=== PATIENT | male | born 1945 | race Caucasian/White ===

== ENCOUNTER 2020-02-05 07:42 | Emergency (ER) | payer MEDICARE, OTHER ==
[2020-02-05 07:53] VITALS: PULSE 65
[2020-02-05 08:30] LABS: Basophils % (A) 0 %; Eosinophils # (A) 0.2 k/uL (0-0.7); Eosinophils % (A) 2 %; HCT 44.2 % (39.0-53.0); HGB 14.3 gm/dL (13.0-17.5); Lymphocytes # (A) 1.3 k/uL (1.0-4.8); Lymphocytes % (A) 13 %; MCH 30.4 pg (25.0-35.0); MCHC 32.5 g/dL (31.0-37.0); MCV 93.6 fL (80.0-100.0); Mean Platelet Volume 8.4; Monocytes # (A) 0.5 k/uL (0-1.0); Monocytes % (A) 5 %; Neutrophils # (A) 7.7 k/uL (1.3-7.7); Neutrophils % (A) 78 %; Platelet Count 236 k/uL (150-450); RBC 4.72 m/uL (4.30-5.90); RDW 12.2 % (11.5-15.5); WBC 9.8 k/uL (3.8-10.6)
--- NOTE | 2020-02-05 08:31 | XR ---
EXAMINATION TYPE: XR chest 1V portable DATE OF EXAM: 02/05/2020 HISTORY: Shortness of breath. COMPARISON: None. TECHNIQUE: Single view of the chest is submitted. FINDINGS: Demonstrated are scattered senescent parenchymal change. There is no evidence for focal infiltrate. The heart is stable. Hilar and mediastinal structures are within normal limits. Degenerative changes are seen of the dorsal spine. IMPRESSION: 1. Chronic changes without evidence for acute pulmonary disease.
--- NOTE | 2020-02-05 08:35 | ED ---
General Adult HPI - General Chief complaint: Upper Respiratory Infection Stated complaint: cough/sneezing & fall Time Seen by Provider: 02/05/20 07:54 Source: patient Mode of arrival: wheelchair Limitations: no limitations - History of Present Illness Initial comments: Dictation was produced using [employer]on[employer] dictation software. please excuse any gramma tical, word or spelling errors. This patient was cared for during a federal and state declared state of emergency secondary to Covid 19 Chief Complaint: 74-year-old male past medical history diabetes and hypertension presents with concern of Covid 19 History of Present Illness: 74-year-old male who presents today with concern of coronavirus infection. He's been having sneezing coughing for the last 2 weeks. States that he was given some medications which improved his symptoms. Patient denies any fever, chills or night sweats. He was urged by his to come in to be tested for coronavirus. Patient reports that he doesn't feel very ill and only came because his made him come. Patient denies any shortness of breath. The ROS documented in this emergency department record has been reviewed and confirmed by me. Those systems with pertinent positive or negative responses have been documented in the HPI. All other systems are other negative and/or noncontributory. PHYSICAL EXAM: General Impression: Alert and oriented x3, not in acute distress HEENT: Normocephalic atraumatic, extra-ocular movements intact, pupils equal and reactive to light bilaterally, mucous membranes moist. Cardiovascular: Heart regular rate and rhythm Chest: Able to complete full sentences, no retractions, no tachypnea Abdomen: Bowel sounds present, abdomen soft, non-tender, non-distended, no organomegaly Musculoskeletal: Pulses present and equal in all extremities, no peripheral e dom Motor: no focal deficits noted Neurological: CN II-XII grossly intact, no focal motor or sensory deficits noted Skin: Intact with no visualized rashes Psych: Normal affect and mood ED course: 74-year-old male presents to the emergency department for coronavirus testing. Vital signs upon arrival are within acceptable limits. Patient well- appearing at bedside. Not hypoxic and not showing any signs of respiratory distress. Patient was notified that we are not testing stable patient's at this time Laboratory evaluation obtained showing no acute processes. CRP is negative. X- rays nonacute. Although patient appears stable there is a small chance that she has coronavirus however he appears stable at this time. He is told that his chances of having it is very unlikely although possible. Patient's symptoms likely secondary to allergens. He is advised follow-up with primary care reece maria. Patient told to cardiac for 14 days. He is also given covert 19 resources. Return parameters discussed. Patient will be discharged. EKG interpretation: Ventricular rate 64, normal sinus rhythm,. 142, QRS 82, QTC 425. No TN prolongation, no QTC prolongation, no ST or T-wave changes noted. Overall, this EKG is unremarkable - Related Data Allergies Allergy/AdvReac Type Severity Reaction Status Date / Time No Known Allergies Allergy Verified 02/05/20 07:53 Review of Systems ROS Statement: Those systems with pertinent positive or pertinent negative responses have been documented in the HPI. ROS Other: All systems not noted in ROS Statement are negative. Past Medical History Past Medical History: Diabetes Mellitus, Hypertension History of Any Multi-Drug Resistant Organisms: None Reported Past Surgical History: No Surgical Hx Reported Smoking Status: Current every day smoker Past Alcohol Use History: None Reported Past Drug Use History: None Reported General Exam Limitations: no limitations Course Vital Signs 02/05/20 02/05/20 02/05/20 07:46 08:18 08:29 Temperature 98.6 F Pulse Rate 65 Respiratory 18 16 16 Rate Blood Pressure 180/85 O2 Sat by Pulse 97 Oximetry 02/05/20 09:14 Temperature 98.8 F Pulse Rate 65 Respiratory 18 Rate Blood Pressure 176/97 O2 Sat by Pulse 97 Oximetry Medical Decision Making - Lab Data Result diagrams: 02/05/20 08:20 02/05/20 08:20 Lab Results 02/05/20 02/05/20 Range/Units 08:20 08:20 WBC 9.8 (3.8-10.6) k/uL RBC 4.72 (4.30-5.90) m/uL Hgb 14.3 (13.0-17.5) gm/dL Hct 44.2 (39.0-53.0) % MCV 93.6 (80.0-100.0) fL MCH 30.4 (25.0-35.0) pg MCHC 32.5 (31.0-37.0) g/dL RDW 12.2 (11.5-15.5) % Plt Count 236 (150-450) k/uL Neutrophils % 78 % Lymphocytes % 13 % Monocytes % 5 % Eosinophils % 2 % Basophils % 0 % Neutrophils # 7.7 (1.3-7.7) k/uL Lymphocytes # 1.3 (1.0-4.8) k/uL Monocytes # 0.5 (0-1.0) k/uL Eosinophils # 0.2 (0-0.7) k/uL Basophils # 0.0 (0-0.2) k/uL Sodium 139 (137-145) mmol/L Potassium 4.5 (3.5-5.1) mmol/L Chloride 111 H (98-107) mmol/L Carbon Dioxide 22 (22-30) mmol/L Anion Gap 6 mmol/L BUN 16 (9-20) mg/dL Creatinine 0.70 (0.66-1.25) mg/dL Est GFR (CKD-EPI)AfAm >90 (>60 ml/min/1.73 sqM) Est GFR (CKD-EPI)NonAf >90 (>60 ml/min/1.73 sqM) Glucose 112 H (74-99) mg/dL Calcium 8.9 (8.4-10.2) mg/dL C-Reactive Protein <5.0 (<10.0) mg/L Disposition Clinical Impression: Sneezing Disposition: HOME SELF-CARE Condition: Good Instructions (If sedation given, give patient instructions): Upper Respiratory Infection (ED) Additional Instructions: Today you were evaluated for symptoms consistent with upper respiratory infection. There is concern that perhaps your symptomatology may represent Covid 19. Your are stable for discharge, however it is instructed to to seek immediate medical attention especially if you develop worsening symptoms especially respiratory distress. In the meantime please remain in quarantine for 14 days. For any other questions please contact Ricci for here in emergency department or [facility] at [phone] Is patient prescribed a controlled substance at d/c from ED?: No Referrals: Fariba Astorga MD [Primary Care Provider] - 1-2 days Time of Disposition: 09:21
[2020-02-05 08:39] LABS: African American GFR (CKD) >90 (>60 ml/min/1.73 sqM); Anion Gap 6 mmol/L; Blood Urea Nitrogen 16 mg/dL (9-20); Calcium 8.9 mg/dL (8.4-10.2); Carbon Dioxide 22 mmol/L (22-30); Chloride 111 mmol/L (98-107); Glucose 112 mg/dL (74-99); Non-African American GFR(CKD) >90 (>60 ml/min/1.73 sqM); Potassium 4.5 mmol/L (3.5-5.1); Sodium 139 mmol/L (137-145)
[2020-02-05 09:11] LABS: C Reactive Protein <5.0 mg/L (<10.0)
[2020-02-05 09:18] VITALS: BP 176/97; RESP 18; TEMP 98.8
== END 2020-02-05 09:43 | disposition home or self-care (01) ==
LOC: EC 07:42
DX: R06.7 Sneezing (principal); R05 Cough; E11.9 Type 2 diabetes mellitus without complications; I10 Essential (primary) hypertension; F17.200 Nicotine dependence, unspecified, uncomplicated
CPT/HCPCS: 36415; 71045; 80048; 85025; 86140; 93005; 99284

== ENCOUNTER 2020-08-23 13:50 | Observation (INO) | payer MEDICARE, OTHER ==
--- NOTE | 2020-08-23 14:13 | ED ---
General Adult HPI - General Chief complaint: Chest Pain Stated complaint: chest pain Time Seen by Provider: 08/23/20 14:00 Source: patient, EMS, RN notes reviewed, old records reviewed Mode of arrival: EMS Limitations: no limitations - History of Present Illness Initial comments: 75-year-old male presenting for evaluation of chest pain. Pain is in his right shoulder, does travel from the shoulder into the right-sided chest and to central substernal region. Has been ongoing for the past 2 days. Patient does report that he was moving some heavy boxes and felt that this may have initiated the pain. He has a history of CAD with previous stent. He denies nausea vomiting. Denies diaphoresis. Denies any left-sided symptoms. - Related Data Allergies Allergy/AdvReac Type Severity Reaction Status Date / Time No Known Allergies Allergy Verified 06/23/20 17:55 Review of Systems ROS Statement: Those systems with pertinent positive or pertinent negative responses have been documented in the HPI. ROS Other: All systems not noted in ROS Statement are negative. Past Medical History Past Medical History: Coronary Artery Disease (CAD), Diabetes Mellitus, Hypertension History of Any Multi-Drug Resistant Organisms: None Reported Past Surgical History: No Surgical Hx Reported Additional Past Surgical History / Comment(s): 1 sent placed Smoking Status: Current every day smoker Past Alcohol Use History: Daily Past Drug Use History: None Reported General Exam Limitations: no limitations General appearance: alert, in no apparent distress Head exam: Present: atraumatic, normocephalic Eye exam: Present: normal appearance ENT exam: Present: normal exam Neck exam: Present: normal inspection. Absent: tenderness, meningismus Respiratory exam: Present: normal lung sounds bilaterally. Absent: respiratory distress, wheezes Cardiovascular Exam: Present: regular rate, normal rhythm GI/Abdominal exam: Present: soft. Absent: distended, tenderness, guarding Extremities exam: Present: other (pain in the left shoulder with range of motion) Neurological exam: Present: alert, oriented X3 Psychiatric exam: Present: normal affect, normal mood Skin exam: Present: warm, dry, intact Course Vital Signs 08/23/20 08/23/20 08/23/20 13:53 14:02 15:05 Temperature 98.5 F 98.2 F Pulse Rate 79 74 Pulse Rate [ 75 [employer] ] Respiratory 16 16 Rate Blood Pressure 152/87 125/87 O2 Sat by Pulse 96 94 L Oximetry - Reevaluation(s) Reevaluation #1: 08/23/20 15:16 patient given aspirin, nitroglycerin, and fentanyl by EMS. EKG Findings - EKG Comments: EKG Findings:: EKG: Normal sinus rhythm, rate of 79, SD interval 132, QRS duration 80, QTC 442, no ST segment elevation. Medical Decision Making - Medical Decision Making 5-year-old male with right upper chest pain, shoulder pain. Pain is atypical however does have a component of substernal chest pain associated with it His EKG shows sinus rhythm without ST segment elevation. Chest x-rays negative for acute cardiopulmonary disease. Patient has a normal CBC normal CMP, negative initial troponin. I suspect this patient's pain is musculoskeletal he will be placed in observation for serial cardiac enzymes, telemetry, and cardiology consultation given his risk factors. - Lab Data Result diagrams: 08/23/20 14:06 08/23/20 14:06 Lab Results 08/23/20 08/23/20 08/23/20 Range/Units 14:01 14:06 14:06 WBC 12.2 H (3.8-10.6) k/uL RBC 4.59 (4.30-5.90) m/uL Hgb 14.8 (13.0-17.5) gm/dL Hct 44.8 (39.0-53.0) % MCV 97.8 (80.0-100.0) fL MCH 32.2 (25.0-35.0) pg MCHC 32.9 (31.0-37.0) g/dL RDW 12.4 (11.5-15.5) % Plt Count 270 (150-450) k/uL Neutrophils % 83 % Lymphocytes % 9 % Monocytes % 6 % Eosinophils % 1 % Basophils % 0 % Neutrophils # 10.1 H (1.3-7.7) k/uL Lymphocytes # 1.1 (1.0-4.8) k/uL Monocytes # 0.8 (0-1.0) k/uL Eosinophils # 0.1 (0-0.7) k/uL Basophils # 0.0 (0-0.2) k/uL PT 9.6 (9.0-12.0) sec INR 0.9 (<1.2) APTT 23.3 (22.0-30.0) sec Sodium (137-145) mmol/L Potassium (3.5-5.1) mmol/L Chloride (98-107) mmol/L Carbon Dioxide (22-30) mmol/L Anion Gap mmol/L BUN (9-20) mg/dL Creatinine (0.66-1.25) mg/dL Est GFR (CKD-EPI)AfAm (>60 ml/min/1.73 sqM) Est GFR (CKD-EPI)NonAf (>60 ml/min/1.73 sqM) Glucose (74-99) mg/dL Calcium (8.4-10.2) mg/dL Magnesium (1.6-2.3) mg/dL Total Bilirubin (0.2-1.3) mg/dL AST (17-59) U/L ALT (4-49) U/L Alkaline Phosphatase (38-126) U/L Troponin I (0.000-0.034) ng/mL NT-Pro-B Natriuret Pep 237 pg/mL Total Protein (6.3-8.2) g/dL Albumin (3.5-5.0) g/dL Lipase (23-300) U/L 08/23/20 08/23/20 Range/Units 14:06 14:06 WBC (3.8-10.6) k/uL RBC (4.30-5.90) m/uL Hgb (13.0-17.5) gm/dL Hct (39.0-53.0) % MCV (80.0-100.0) fL MCH (25.0-35.0) pg MCHC (31.0-37.0) g/dL RDW (11.5-15.5) % Plt Count (150-450) k/uL Neutrophils % % Lymphocytes % % Monocytes % % Eosinophils % % Basophils % % Neutrophils # (1.3-7.7) k/uL Lymphocytes # (1.0-4.8) k/uL Monocytes # (0-1.0) k/uL Eosinophils # (0-0.7) k/uL Basophils # (0-0.2) k/uL PT (9.0-12.0) sec INR (<1.2) APTT (22.0-30.0) sec Sodium 134 L (137-145) mmol/L Potassium 4.5 (3.5-5.1) mmol/L Chloride 106 (98-107) mmol/L Carbon Dioxide 25 (22-30) mmol/L Anion Gap 3 mmol/L BUN 17 (9-20) mg/dL Creatinine 0.84 (0.66-1.25) mg/dL Est GFR (CKD-EPI)AfAm >90 (>60 ml/min/1.73 sqM) Est GFR (CKD-EPI)NonAf 86 (>60 ml/min/1.73 sqM) Glucose 173 H (74-99) mg/dL Calcium 9.0 (8.4-10.2) mg/dL Magnesium 1.9 (1.6-2.3) mg/dL Total Bilirubin 0.8 (0.2-1.3) mg/dL AST 36 (17-59) U/L ALT 17 (4-49) U/L Alkaline Phosphatase 83 (38-126) U/L Troponin I <0.012 (0.000-0.034) ng/mL NT-Pro-B Natriuret Pep pg/mL Total Protein 5.9 L (6.3-8.2) g/dL Albumin 3.5 (3.5-5.0) g/dL Lipase 37 (23-300) U/L Disposition Clinical Impression: Chest pain Disposition: ADMITTED IP TO THIS HOSP Condition: Stable Is patient prescribed a controlled substance at d/c from ED?: No Referrals: Wes Pollock DO [Primary Care Provider] - 1-2 days Decision to Admit Reason: Admit from EC Decision Date: 08/23/20 Decision Time: 15:19
[2020-08-23 14:14] LABS: Basophils % (A) 0 %; Eosinophils # (A) 0.1 k/uL (0-0.7); Eosinophils % (A) 1 %; HCT 44.8 % (39.0-53.0); HGB 14.8 gm/dL (13.0-17.5); Lymphocytes # (A) 1.1 k/uL (1.0-4.8); Lymphocytes % (A) 9 %; MCH 32.2 pg (25.0-35.0); MCHC 32.9 g/dL (31.0-37.0); MCV 97.8 fL (80.0-100.0); Mean Platelet Volume 8.1; Monocytes # (A) 0.8 k/uL (0-1.0); Monocytes % (A) 6 %; Neutrophils # (A) 10.1 k/uL (1.3-7.7); Neutrophils % (A) 83 %; Platelet Count 270 k/uL (150-450); RBC 4.59 m/uL (4.30-5.90); RDW 12.4 % (11.5-15.5); WBC 12.2 k/uL (3.8-10.6)
[2020-08-23 14:24] LABS: ALT 17 U/L (4-49); AST 36 U/L (17-59); African American GFR (CKD) >90 (>60 ml/min/1.73 sqM); Albumin 3.5 g/dL (3.5-5.0); Alkaline Phosphatase 83 U/L (38-126); Anion Gap 3 mmol/L; Blood Urea Nitrogen 17 mg/dL (9-20); Carbon Dioxide 25 mmol/L (22-30); Chloride 106 mmol/L (98-107); Glucose 173 mg/dL (74-99); Lipase 37 U/L (23-300); Magnesium 1.9 mg/dL (1.6-2.3); Non-African American GFR(CKD) 86 (>60 ml/min/1.73 sqM); Potassium 4.5 mmol/L (3.5-5.1); Sodium 134 mmol/L (137-145); Total Bilirubin 0.8 mg/dL (0.2-1.3); Total Protein 5.9 g/dL (6.3-8.2)
--- NOTE | 2020-08-23 14:31 | XR ---
EXAMINATION TYPE: XR chest 2V DATE OF EXAM: 08/23/2020 COMPARISON: Chest x-ray February 05, 2020 HISTORY: Chest pain. TECHNIQUE: Frontal and lateral views of the chest are obtained. FINDINGS: There is chronic parenchymal changes bilaterally without suspicious focal air space opacit y, pleural effusion, or pneumothorax seen. The cardiac silhouette size is within normal limits. Mult ilevel spurring in the spine. Overlying EKG leads are present. IMPRESSION: Chronic changes without acute pulmonary process.
--- NOTE | 2020-08-23 14:32 | XR ---
EXAMINATION TYPE: XR shoulder complete RT DATE OF EXAM: 08/23/2020 CLINICAL HISTORY: Chest pain into right shoulder. TECHNIQUE: Three views of the right shoulder are obtained. COMPARISON: None. FINDINGS: There is no acute fracture/dislocation evident in the right shoulder. Moderate spurring an d joint space loss acromioclavicular joint. Distal acromion morphology unremarkable. Glenohumeral waldo nt shows [id number] narrowing. The visualized ribs are intact and unremarkable. IMPRESSION: As above.
[2020-08-23 14:35] LABS: INR 0.9 (<1.2); Partial Thromboplastin Time 23.3 sec (22.0-30.0); Prothrombin Time 9.6 sec (9.0-12.0)
[2020-08-23] MEDS ORDERED: NALOXONE 0.4 MG/ML 1 ML VIAL IV PRN (15:17)
[2020-08-23] MEDS ORDERED: ACETAMINOPHEN TAB 325 MG TAB PO PRN (15:17)
[2020-08-23] MEDS ORDERED: SODIUM CHLORIDE 0.9% 1,000 ML IV SCH (15:30)
[2020-08-23] MEDS: MORPHINE SULFATE 4 MG/ML SYRINGE IV PRN ×2 (17:00→22:26)
[2020-08-23] MEDS ORDERED: SYMBICORT 80-4.5 MCG INHALER INHALATION PRN (17:33)
[2020-08-23 20:41] LABS: Glucose,Whole Blood 105 mg/dL (75-99)
[2020-08-23] MEDS: INSULIN ASPART (NovoLOG) 100 UNIT/ML VIAL SQ SCH (21:47)
--- NOTE | 2020-08-23 22:32 | P.HPIM ---
History of Present Illness H&P Date: 08/23/20 Chief Complaint: Chest Pain Patient is a 75-year-old male with a known history of coronary artery disease status post stent placement x1, ongoing nicotine addiction, diabetes type 2, hypertension and daily alcohol use came to ER with complaints of chest pain. Chest pain is mainly right upper chest and patient states that starts with this shoulder pain and radiating to the midsternal region. Patient states that pain gets worse when he sleeps on the side. Pain has been going on for the past 2 days. No associated nausea vomiting or diaphoresis. No headache or dizziness or lightheadedness. No palpitations no leg swelling. Denied any recent illnesses. No recent travel. Chest x-ray showed chronic changes without acute pulmonary process. Shoulder x-ray showed there is no acute fracture or dislocation Currently right shoulder. Moderate spurring and joint space loss of Glenohumeral joint shows mild to moderate narrowing. Laboratory data showed WBC 12.2, hemoglobin 14.8, platelets 270 Sodium 134, potassium 4.5, troponin x3 - 11 years within normal meds. proBNP 237 Lipase 37 Review of Systems Constitutional: Patient denies any fever or chills . No generalized weakness or weight loss. Abdomen: Patient denied nausea vomiting and diarrhea and abdominal pain. Cardiovascular: Patient denies any chest pain or short of breath no palpitations. Respiratory: patient denied any cough or sputum production. No shortness of breath Neurologic: Patient denied any numbness or tingling headache. Musculoskeletal: Rt Shoulder pain Skin: Negative Psychiatric: Negative Endocrine: No heat or cold intolerance. No recent weight gain. Genitourinary: No dysuria or hematuria. All other 14 point ROS negative except the above Past Medical History Past Medical History: Coronary Artery Disease (CAD), Diabetes Mellitus, Hyperlipidemia, Hypertension Additional Past Medical History / Comment(s): 1 stent History of Any Multi-Drug Resistant Organisms: None Reported Past Surgical History: No Surgical Hx Reported Additional Past Surgical History / Comment(s): 1 sent placed Past Anesthesia/Blood Transfusion Reactions: No Reported Reaction Past Psychological History: No Psychological Hx Reported Smoking Status: Current every day smoker Past Alcohol Use History: Daily Past Drug Use History: None Reported Medications and Allergies Home Medications Medication Instructions Recorded Confirmed Type Aspirin EC [Ecotrin Low Dose] 81 mg PO QAM 08/23/20 08/23/20 History Atorvastatin Calcium [Lipitor] 20 mg PO QAM 08/23/20 08/23/20 History Fluticasone Nasal [place] [Flonase 1 spray EA NOSTRIL DAILY 08/23/20 08/23/20 History Nasal [place]] Fluticasone/Salmeterol [Advair 1 puff INHALATION RT-DAILY PRN 08/23/20 08/23/20 History 250-50 Diskus] Losartan Potassium [Cozaar] 50 mg PO DAILY 08/23/20 08/23/20 History Venlafaxine HCl [Effexor] 75 mg PO DAILY 08/23/20 08/23/20 History Vitamin B-12 100mcg 100 mcg PO QAM 08/23/20 08/23/20 History methocarbamoL [Robaxin] 500 mg PO DAILY 08/23/20 08/23/20 History Allergies Allergy/AdvReac Type Severity Reaction Status Date / Time No Known Allergies Allergy Verified 08/23/20 15:39 Physical Exam Vitals: Vital Signs Temp Pulse Pulse Pulse Resp BP BP 08/23/20 20:33 70 18 08/23/20 20:30 98.8 F 70 18 150/75 08/23/20 16:30 71 18 08/23/20 16:10 99.1 F 71 18 154/84 08/23/20 15:05 98.2 F 74 16 125/87 08/23/20 14:02 75 08/23/20 13:53 98.5 F 79 16 152/87 Pulse Ox 08/23/20 20:33 08/23/20 20:30 93 L 08/23/20 16:30 08/23/20 16:10 96 08/23/20 15:05 94 L 08/23/20 14:02 08/23/20 13:53 96 Intake and Output 08/23/20 08/23/20 08/23/20 06:59 14:59 22:59 Other: Voiding Method Toilet Weight 88.904 kg 88.904 kg PHYSICAL EXAMINATION: Patient is lying in the bed comfortably, no acute distress, awake alert and oriented.. HEENT: Normocephalic. Neck is supple. Pupils reactive. Nostrils clear. Oral cavity is moist. Ears reveal no drainage. Neck reveals no JVD, carotid bruits, or thyromegaly. CHEST EXAMINATION: Trachea is central. Symmetrical expansion. Lung rachel clear to auscultation and percussion. CARDIAC: Normal S1, S2 with no gallops. No murmurs ABDOMEN: Soft. Bowel sounds normal. No organomegaly. No abdominal bruits. Extremities: reveal no edema. No clubbing or cyanosis Neurologically awake, alert, oriented x3 with well-coordinated movements. No focal deficits noted Skin: No rash or skin lesions. Psychiatric: Coperative. Nonsuicidal Musculoskeletal: No joint swelling or deformity. Patient does have pain with adduction of right shoulder. Results CBC & Chem 7: 08/23/20 14:06 08/23/20 14:06 Labs: Abnormal Lab Results - Last 24 Hours (Table) 08/23/20 08/23/20 08/23/20 Range/Units 14:06 14:06 20:39 WBC 12.2 H (3.8-10.6) k/uL Neutrophils # 10.1 H (1.3-7.7) k/uL Sodium 134 L (137-145) mmol/L Glucose 173 H (74-99) mg/dL POC Glucose (mg/dL) 105 H (75-99) mg/dL Total Protein 5.9 L (6.3-8.2) g/dL Thrombosis Risk Factor Assmnt - DVT/VTE Prophylaxis DVT/VTE Prophylaxis: Pharmacologic Prophylaxis ordered - Choose All That Apply Any of the Below Risk Factors Present?: No Each Risk Factor Represents 3 Points: Age 75 years or older Thrombosis Risk Factor Assessment Total Risk Factor Score: 3 Thrombosis Risk Factor Assessment Level: Moderate Risk Assessment and Plan Assessment: Atypical chest pain mainlly right shoulder pain musculoskeletal in origin. Ruled out ACS. Right acromioclavicular osteoarthritis Coronary artery disease history of stent placement x1 Diabetes type 2 [id number] Hypertension Ongoing nicotine addiction Daily alcohol use DVT prophylaxis Plan: Patient will be continued on telemetry monitoring. Serial EKG and troponins. Continue with pain management of the right shoulder and follow-up closely. Further recommendations based on the clinical course. Smoking cessation has been counseled extensively.
[2020-08-23] MEDS: HEPARIN SODIUM,PORCINE 5,000 UNIT/ML 1 ML VIAL SQ SCH (23:46)
[2020-08-24 06:02] LABS: Basophils # (A) 0.1 k/uL (0-0.2); Basophils % (A) 1 %; Eosinophils # (A) 0.1 k/uL (0-0.7); Eosinophils % (A) 1 %; HCT 46.9 % (39.0-53.0); HGB 14.9 gm/dL (13.0-17.5); Lymphocytes # (A) 1.8 k/uL (1.0-4.8); Lymphocytes % (A) 20 %; MCH 31.5 pg (25.0-35.0); MCHC 31.9 g/dL (31.0-37.0); MCV 98.7 fL (80.0-100.0); Monocytes # (A) 0.6 k/uL (0-1.0); Monocytes % (A) 7 %; Neutrophils # (A) 6.2 k/uL (1.3-7.7); Neutrophils % (A) 69 %; Platelet Count 244 k/uL (150-450); RBC 4.75 m/uL (4.30-5.90); RDW 12.5 % (11.5-15.5)
[2020-08-24 06:35] LABS: Glucose,Whole Blood 119 mg/dL (75-99)
[2020-08-24] MEDS: INSULIN ASPART (NovoLOG) 100 UNIT/ML VIAL SQ SCH ×2 (06:37→13:25)
[2020-08-24 07:08] LABS: African American GFR (CKD) >90 (>60 ml/min/1.73 sqM); Anion Gap 3 mmol/L; Blood Urea Nitrogen 14 mg/dL (9-20); Calcium 8.9 mg/dL (8.4-10.2); Carbon Dioxide 26 mmol/L (22-30); Chloride 106 mmol/L (98-107); Glucose 120 mg/dL (74-99); Non-African American GFR(CKD) 85 (>60 ml/min/1.73 sqM); Potassium 4.4 mmol/L (3.5-5.1); Sodium 135 mmol/L (137-145)
[2020-08-24] MEDS ORDERED: VITAMIN B12 100 MCG PO SCH (09:00)
[2020-08-24] MEDS ORDERED: FLUTICASONE 50MCG/SPRAY NASAL 16GM EA NOSTRIL SCH (09:00)
[2020-08-24] MEDS ORDERED: ATORVASTATIN 20 MG TAB PO SCH (09:00)
[2020-08-24] MEDS ORDERED: methocarbamoL 500 MG TAB PO SCH (09:00)
[2020-08-24] MEDS ORDERED: THIAMINE 100 MG TAB PO SCH (09:00)
[2020-08-24] MEDS ORDERED: ASPIRIN 81 MG PO SCH (09:00)
[2020-08-24] MEDS ORDERED: VENLAFAXINE HCL 75 MG TAB PO SCH (09:00)
[2020-08-24] MEDS ORDERED: LOSARTAN 50 MG TAB PO SCH (09:00)
[2020-08-24] MEDS: HEPARIN SODIUM,PORCINE 5,000 UNIT/ML 1 ML VIAL SQ SCH (09:04)
[2020-08-24] MEDS ORDERED: KETOROLAC 15 MG/ML 1 ML VIAL IVP STA (11:01)
--- NOTE | 2020-08-24 12:57 | P.CRDCN ---
History of Present Illness Consult date: 08/24/20 Consult reason: chest pain Chief complaint: chest pain History of present illness: History of present illness: This is a 75-year-old male with past medical history of COPD, hypertension, chronic neck and back pain. 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 He states he had a normal treadmill test many years ago. He has never had a cardiac catheterization. Patient gives history that he has been lifting a lot of boxes as he is in the process of moving. He complains of chest pain to the upper mid and left chest that has been going on for a couple days. It comes and goes and with exertion and seems to get worse. He stops and relaxes and it gets better. He denies having any lightheadedness or dizziness. No palpitations. He also complains of right shoulder pain. Patient came into [facility] emergency center for evaluation. Initial blood pressure 152/87. Troponins are negative on 3 draws. ProBNP 237. Initial white count of 12.2, sodium 134, potassium 4.5, creatinine 0.84. Shoulder x-ray showed no acute fracture or dislocation. Chest x-ray reveals chronic changes w ithout acute pulmonary process. The patient has chest wall tenderness. Review Of Systems: Constitutional: No fever, no chills. No weakness, fatigue or lethargy. EENT: No headache. No dizziness. Lungs: No shortness of breath, cough, no sputum production. No wheezing. Cardiovascular: Reports chest pain, no lower extremity edema. No palpitations. No paroxysmal nocturnal dyspnea. No orthopnea. No lightheadedness or dizziness. No syncopal episodes. Abdominal: No abdominal pain. No nausea, vomiting. No diarrhea. Musculoskeletal: No myalgias. No muscle weakness, no gait dysfunction, no frequent falls. Reports chronic neck pain. Complains of right shoulder pain. Integumentary: No wounds, no lesions. No rash or pruritus. Neurologic: No aphasia. No facial droop. No change in mentation. Psychiatric: No depression. No anxiety. Endocrine: No abnormal blood sugars. Physical examination: Gen: This is a 75-year-old male. He is resting but appears to be comfortable. VS: Afebrile, heart rate 81, blood pressure 158/84, pulse ox 93% on room air. HEENT: Head is atraumatic, normocephalic. Pupils equal, round. Sclerae is anicteric. NECK: Supple. No JVD. No lymphadenopathy. No thyromegaly. LUNGS: Inspiratory and expiratory wheezing and scattered rhonchi. No int ercostal retractions. HEART: Regular rate and rhythm. No murmur. Chest wall tenderness left upper a nterior chest wall. ABDOMEN: Soft. Bowel sounds are present. No masses. No tenderness. EXTREMITIES: No pedal edema. No calf tenderness. NEUROLOGICAL: Patient is awake, alert and oriented x3. Cranial nerves 2 through 12 are grossly intact. Assessment: Musculoskeletal chest pain, ruled out acute coronary syndrome Hypertension COPD Chronic back and neck pain Acute right shoulder pain Plan: Continue losartan 50 mg daily, Lipitor 20 mg daily Patient may follow-up in the outpatient setting Thank you kindly for this consultation. Nurse practitioner note has been reviewed, I agree with documented findings and plan of care. Patient was seen and examined. Past Medical History Past Medical History: Coronary Artery Disease (CAD), Diabetes Mellitus, Hype rlipidemia, Hypertension Additional Past Medical History / Comment(s): 1 stent History of Any Multi-Drug Resistant Organisms: None Reported Past Surgical History: No Surgical Hx Reported Additional Past Surgical History / Comment(s): 1 sent placed Past Anesthesia/Blood Transfusion Reactions: No Reported Reaction Past Psychological History: No Psychological Hx Reported Smoking Status: Current every day smoker Past Alcohol Use History: Daily Past Drug Use History: None Reported Medications and Allergies Home Medications Medication Instructions Recorded Confirmed Type Aspirin EC [Ecotrin Low Dose] 81 mg PO QAM 08/23/20 08/23/20 History Atorvastatin Calcium [Lipitor] 20 mg PO QAM 08/23/20 08/23/20 History Fluticasone Nasal [place] [Flonase 1 spray EA NOSTRIL DAILY 08/23/20 08/23/20 History Nasal [place]] Fluticasone/Salmeterol [Advair 1 puff INHALATION RT-DAILY PRN 08/23/20 08/23/20 History 250-50 Diskus] Losartan Potassium [Cozaar] 50 mg PO DAILY 08/23/20 08/23/20 History Venlafaxine HCl [Effexor] 75 mg PO DAILY 08/23/20 08/23/20 History Vitamin B-12 100mcg 100 mcg PO QAM 08/23/20 08/23/20 History methocarbamoL [Robaxin] 500 mg PO DAILY 08/23/20 08/23/20 History Allergies Allergy/AdvReac Type Severity Reaction Status Date / Time No Known Allergies Allergy Verified 08/23/20 15:39 Physical Exam Vitals: Vital Signs Temp Pulse Pulse Pulse Resp BP BP 08/24/20 03:45 98.3 F 74 18 138/78 08/23/20 20:33 70 18 08/23/20 20:30 98.8 F 70 18 150/75 08/23/20 16:30 71 18 08/23/20 16:10 99.1 F 71 18 154/84 08/23/20 15:05 98.2 F 74 16 125/87 08/23/20 14:02 75 08/23/20 13:53 98.5 F 79 16 152/87 Pulse Ox 08/24/20 03:45 93 L 08/23/20 20:33 08/23/20 20:30 93 L 08/23/20 16:30 08/23/20 16:10 96 08/23/20 15:05 94 L 08/23/20 14:02 08/23/20 13:53 96 Intake and Output 08/23/20 08/24/20 08/24/20 22:59 06:59 14:59 Other: Voiding Method Toilet Toilet # Voids 1 Weight 88.904 kg Results 08/24/20 05:01 08/24/20 05:01 Cardiac Enzymes 08/23/20 08/23/20 08/23/20 Range/Units 14:06 14:06 18:04 AST 36 (17-59) U/L Troponin I <0.012 <0.012 (0.000-0.034) ng/mL 08/23/20 Range/Units 21:12 AST (17-59) U/L Troponin I <0.012 (0.000-0.034) ng/mL Coagulation 08/23/20 Range/Units 14:06 PT 9.6 (9.0-12.0) sec APTT 23.3 (22.0-30.0) sec CBC 08/23/20 08/24/20 Range/Units 14:06 05:01 WBC 12.2 H 9.0 (3.8-10.6) k/uL RBC 4.59 4.75 (4.30-5.90) m/uL Hgb 14.8 14.9 (13.0-17.5) gm/dL Hct 44.8 46.9 (39.0-53.0) % Plt Count 270 244 (150-450) k/uL Comprehensive Metabolic Panel 08/23/20 08/24/20 Range/Units 14:06 05:01 Sodium 134 L 135 L (137-145) mmol/L Potassium 4.5 4.4 (3.5-5.1) mmol/L Chloride 106 106 (98-107) mmol/L Carbon Dioxide 25 26 (22-30) mmol/L BUN 17 14 (9-20) mg/dL Creatinine 0.84 0.87 (0.66-1.25) mg/dL Glucose 173 H 120 H (74-99) mg/dL Calcium 9.0 8.9 (8.4-10.2) mg/dL AST 36 (17-59) U/L ALT 17 (4-49) U/L Alkaline Phosphatase 83 (38-126) U/L Total Protein 5.9 L (6.3-8.2) g/dL Albumin 3.5 (3.5-5.0) g/dL Current Medications Generic Name Dose Route Start Last Admin Trade Name Freq PRN Reason Stop Dose Admin Acetaminophen 650 mg 08/23/20 15:17 Acetaminophen Tab 325 Mg Tab PO Q6HR PRN Mild Pain or Fever > 100.5 Aspirin 81 mg 08/24/20 09:00 Aspirin 81 Mg PO QAM [facility] Atorvastatin Calcium 20 mg 08/24/20 09:00 Atorvastatin 20 Mg Tab PO QAM [facility] Budesonide/Formoterol Fumarate 2 puff 08/23/20 17:33 Symbicort 80-4.5 Mcg Inhaler INHALATION RT-DAILY PRN Shortness Of Breath Fluticasone Propionate 1 spray 08/24/20 09:00 Fluticasone 50mcg/[place] Nasal 16gm EA NOSTRIL DAILY [facility] Heparin Sodium (Porcine) 5,000 unit 08/24/20 00:00 08/23/20 23:46 Heparin Sodium,Porcine 5,000 Unit/Ml 1 Ml Vial SQ 5,000 unit Q8HR [facility] Administration Sodium Chloride 1,000 mls @ 20 mls/hr 08/23/20 15:30 08/23/20 15:46 Saline 0.9% IV 20 mls/hr .Q24H [facility] Administration Insulin Aspart 0 unit 08/23/20 21:00 08/24/20 06:37 Insulin Aspart (Novolog) 100 Unit/Ml Vial SQ Not Given ACHS [facility] Protocol Losartan Potassium 50 mg 08/24/20 09:00 Losartan 50 Mg Tab PO DAILY [facility] Methocarbamol 500 mg 08/24/20 09:00 Methocarbamol 500 Mg Tab PO DAILY [facility] Morphine Sulfate 4 mg 08/23/20 15:17 08/23/20 22:26 Morphine Sulfate 4 Mg/Ml Syringe IV 4 mg Q4HR PRN Administration Severe Pain Naloxone HCl 0.2 mg 08/23/20 15:17 Naloxone 0.4 Mg/Ml 1 Ml Vial IV Q2M PRN Opioid Reversal Thiamine HCl 100 mg 08/24/20 09:00 Thiamine 100 Mg Tab PO DAILY [facility] Venlafaxine HCl 75 mg 08/24/20 09:00 Venlafaxine Hcl 75 Mg Tab PO DAILY [facility] Intake and Output 08/23/20 08/24/20 08/24/20 22:59 06:59 14:59 Other: Voiding Method Toilet Toilet # Voids 1 Weight 88.904 kg 08/24/20 05:01 08/24/20 05:01
[2020-08-24 15:49] VITALS: BP 133/76; PULSE 70; RESP 14; TEMP 98.2
== END 2020-08-24 18:13 | disposition home or self-care (01) ==
LOC: EC 13:50 → 3NCARDOBS 15:17
PROVIDERS: ADMIT Hospitalist; ATTEND Hospitalist
DX: R07.89 Other chest pain (principal); M19.011 Primary osteoarthritis, right shoulder; I25.10 Atherosclerotic heart disease of native coronary artery without angina pectoris; E11.9 Type 2 diabetes mellitus without complications; I10 Essential (primary) hypertension; E78.5 Hyperlipidemia, unspecified; J44.9 Chronic obstructive pulmonary disease, unspecified; G89.29 Other chronic pain; M54.2 Cervicalgia; M54.9 Dorsalgia, unspecified; F17.200 Nicotine dependence, unspecified, uncomplicated; Z71.6 Tobacco abuse counseling; Z95.5 Presence of coronary angioplasty implant and graft; Z79.82 Long term (current) use of aspirin; Z79.899 Other long term (current) drug therapy; Z79.51 Long term (current) use of inhaled steroids
CPT/HCPCS: 93005 ×2; 96372 ×2; 96374; 96375; 96376 ×2; 99285; 36415; 94640; 83880; 80053; 80048; 83690; 83735; 84484; 85025 ×2; 85610; 85730; 83036; 73030; 71046; G0378 ×2; J2270; J1644 ×2; J1885

== ENCOUNTER 2022-02-27 14:58 | Emergency (ER) | payer MEDICARE, OTHER ==
[2022-02-27 15:02] VITALS: BP 153/75; PULSE 60; RESP 18; TEMP 99.1
--- NOTE | 2022-02-27 15:32 | XR ---
EXAMINATION TYPE: XR knee complete RT DATE OF EXAM: 02/27/2022 COMPARISON: 06/23/2020 HISTORY: Previous abnormal knee, pain, edema, swelling TECHNIQUE: 3 view right knee FINDINGS: There is narrowing of the medial compartment joint space. Mild narrowing lateral compartmen t joint space is present. Patellofemoral joint space narrowing is present. Patellofemoral joint space appears to have a large calcification. This appears similar to the comparison study. Some enlargemen t is not excluded. IMPRESSION: 1. Persistent calcification within the patellofemoral joint space. Mild enlargement is not excluded. Small joint effusion is present. Orthopedic evaluation additional workup is recommended.
== END 2022-02-27 18:41 | disposition left against medical advice (07) ==
LOC: EC 14:58
DX: Z53.21 Procedure and treatment not carried out due to patient leaving prior to being seen by health care provider (principal)
CPT/HCPCS: 99499